=== PATIENT | male | born 1980 | race African-American/Black ===

== ENCOUNTER 2021-06-04 12:59 | Emergency (ER) | payer MEDICAID ==
[~2021-06-04] VITALS: Ht 190.5 cm; Wt 79.0 kg
[2021-06-04] MEDS ORDERED: ACETAMINOPHEN 325MG TABLET PO ONE (13:30)
[2021-06-04] MEDS ORDERED: ACET-2708 MT (13:57)
[2021-06-04] MEDS ORDERED: NAP5EC MT (13:57)
[2021-06-04 14:12] VITALS: BP 138/67
== END 2021-06-04 14:12 | disposition home or self-care (01) ==
LOC: ER 13:07
DX: S60.221A Contusion of right hand, initial encounter (principal); X58.XXXA Exposure to other specified factors, initial encounter; Y93.89 Activity, other specified; Y92.89 Other specified places as the place of occurrence of the external cause; Y99.8 Other external cause status; F12.10 Cannabis abuse, uncomplicated
CPT/HCPCS: 73130; 99283

== ENCOUNTER 2022-05-20 12:33 | Emergency (ER) | payer MEDICAID ==
[~2022-05-20] VITALS: Ht 190.5 cm; Wt 85.0 kg
[~2022-05-20 12:33] MED LIST: ACET-2708 MT; NAP5EC MT
[2022-05-20 12:35] VITALS: BP 130/78
[2022-05-20] MEDS ORDERED: LIDOCAINE HCL/PF 1% 10 MG/ML 5ML VIAL INFIL ONE (14:00)
[2022-05-20] MEDS ORDERED: BACITRACIN ZINC OINT UDPKT TOP ONE (14:00)
[2022-05-20] MEDS ORDERED: ACETAMINOPHEN 500MG TABLET PO ONE (14:00)
[2022-05-20] MEDS ORDERED: IBUP-2029 MT ×2 (15:13)
== END 2022-05-20 17:41 | disposition home or self-care (01) ==
LOC: ER 12:35
DX: S51.812A Laceration without foreign body of left forearm, initial encounter (principal); X58.XXXA Exposure to other specified factors, initial encounter; Y93.89 Activity, other specified; Y92.89 Other specified places as the place of occurrence of the external cause; Y99.8 Other external cause status; J45.909 Unspecified asthma, uncomplicated; F20.9 Schizophrenia, unspecified; F12.10 Cannabis abuse, uncomplicated; Z88.0 Allergy status to penicillin
CPT/HCPCS: 12002; 73090; 99283; J3490